=== PATIENT | female | born 1975 | race Caucasian/White ===

== ENCOUNTER 2017-05-05 17:18 | Emergency (ER) | payer OTHER ==
[~2017-05-05] VITALS: Ht 165.1 cm; Wt 96.0 kg
[~2017-05-05 17:18] MED LIST: ALBU8I INH; CITA20 PO; CYCL-36 PO
[2017-05-05 17:20] VITALS: BP 145/93; PULSE 79; RESP 16; TEMP 98.6; O2SAT 98
[2017-05-05] MEDS ORDERED: MULTTAB67 PO (17:33)
[2017-05-05] MEDS ORDERED: CELE20TA PO (17:33)
--- NOTE | 2017-05-05 17:43 | PD ---
HPI Chief Complaint: Abdominal Pain Time Seen by Provider: 17:33 Travel History International Travel<30 days: No Contact w/Intl Traveler<30days: No Traveled to known affect area: No History of Present Illness HPI 41-year-old female here for evaluation of right upper quadrant abdominal pain. The patient reports pain in her right upper quadrant for the last week described as an ache, moderate, constant, worse when laying on her side. She denies fevers or chills. No nausea, vomiting, or diarrhea. No history of abdominal surgeries. No urinary symptoms. PFSH Past Medical History Asthma: Yes Anxiety: Yes Cardiovascular Problems: Yes (MITRAL VALVE REGURGITATION) Diminished Hearing: No Tetanus Vaccination: Unknown ?: Not LMP: 04/28/2017 : 2 Para: 1 : 1 Past Surgical History Tonsillectomy: Yes Other Surgery: Yes (LEEP PROCEDURE) Social History Alcohol Use: Yes (occ) Tobacco Use: Yes (1/2 PPD) Substance Use: Yes (alcohol) Allergies-Medications (Allergen,Severity, Reaction): Coded Allergies: No Known Allergies (Verified , 05/05/17) Reported Meds & Prescriptions Reported Meds & Active Scripts Active Tramadol (Tramadol HCl) 50 Mg Tab 50 Mg PO Q6H PRN Protonix (Pantoprazole Sodium) 40 Mg Tab 40 Mg PO DAILY Reported Multiple Vitamin 1 Tab 1 Tab PO DAILY Celexa (Citalopram Hydrobromide) 20 Mg Tab 20 Mg PO DAILY Review of Systems Except as stated in HPI: all other systems reviewed are Neg Physical Exam Narrative GENERAL: Well-developed, well-nourished, comfortable, no acute distress. SKIN: Focused skin assessment warm/dry. No rash. HEAD: Atraumatic. Normocephalic. EYES: Pupils equal and round. No scleral icterus. No injection or drainage. ENT: Mucous membranes pink and moist. CARDIOVASCULAR: Regular rate and rhythm. No murmur appreciated. RESPIRATORY: No accessory muscle use. Clear to auscultation. Breath sounds equal bilaterally. GASTROINTESTINAL: Abdomen soft, nondistended. Mild right upper quadrant tenderness without peritoneal signs. Rest of abdomen is soft and nontender. Normal bowel sounds. No hernias. MUSCULOSKELETAL: No obvious deformities. No clubbing. No cyanosis. No edema. NEUROLOGICAL: Awake and alert. No obvious cranial nerve deficits. Motor grossly within normal limits. Normal speech. PSYCHIATRIC: Appropriate mood and affect; insight and judgment normal. Data Data Last Documented VS Vital Signs Date Time Temp Pulse Resp B/P Pulse Ox O2 Delivery O2 Flow Rate FiO2 05/05/17 19:20 72 18 119/74 100 Room Air 05/05/17 17:20 98.6 Orders Beta Hcg (Quant/Titer) (05/05/17 17:40) Complete Blood Count With Diff (05/05/17 17:40) Comprehensive Metabolic Panel (05/05/17 17:40) Lipase (05/05/17 17:40) Lactic Acid (05/05/17 17:40) Prothrombin Time / Inr (Pt) (05/05/17 17:40) Act Partial Throm Time (Ptt) (05/05/17 17:40) Urinalysis - C+S If Indicated (05/05/17 17:40) Us Abdomen Gallbladder (05/05/17 ) Iv Access Insert/Monitor (05/05/17 17:40) Ecg Monitoring (05/05/17 17:40) Oximetry (05/05/17 17:40) Pantoprazole Inj (Protonix Inj) (05/05/17 17:45) Sodium Chloride 0.9% Flush (Ns Flush) (05/05/17 17:45) Ketorolac Inj (Toradol Inj) (05/05/17 17:45) Labs Laboratory Tests Test 05/05/17 17:52 White Blood Count 9.4 TH/MM3 Red Blood Count 4.35 MIL/MM3 Hemoglobin 13.3 GM/DL Hematocrit 38.8 % Mean Corpuscular Volume 89.0 FL Mean Corpuscular Hemoglobin 30.6 PG Mean Corpuscular Hemoglobin 34.4 % Concent Red Cell Distribution Width 12.8 % Platelet Count 234 TH/MM3 Mean Platelet Volume 8.3 FL Neutrophils (%) (Auto) 69.6 % Lymphocytes (%) (Auto) 21.5 % Monocytes (%) (Auto) 5.6 % Eosinophils (%) (Auto) 2.3 % Basophils (%) (Auto) 1.0 % Neutrophils # (Auto) 6.6 TH/MM3 Lymphocytes # (Auto) 2.0 TH/MM3 Monocytes # (Auto) 0.5 TH/MM3 Eosinophils # (Auto) 0.2 TH/MM3 Basophils # (Auto) 0.1 TH/MM3 CBC Comment DIFF FINAL Differential Comment Prothrombin Time 10.3 SEC Prothromb Time International 0.9 RATIO Ratio Activated Partial 28.9 SEC Thromboplast Time Urine Collection Type CLEAN CATCH Urine Color YELLOW Urine Turbidity CLEAR Urine pH 5.5 Urine Specific [place] 1.027 Urine Protein NEG mg/dL Urine Glucose (UA) NEG mg/dL Urine Ketones NEG mg/dL Urine Occult Blood NEG Urine Nitrite NEG Urine Bilirubin NEG Urine Leukocyte Esterase NEG Urine RBC 0-3 /hpf Urine WBC 0-2 /hpf Urine Squamous Epithelial 0-5 /hpf Cells Microscopic Urinalysis Comment CULT NOT INDICATED Urine Collection Time 17:52 Sodium Level 142 MEQ/L Potassium Level 3.8 MEQ/L Chloride Level 106 MEQ/L Carbon Dioxide Level 26.5 MEQ/L Anion Gap 10 MEQ/L Blood Urea Nitrogen 20 MG/DL Creatinine 0.86 MG/DL Estimat Glomerular Filtration 72 ML/MIN Rate Random Glucose 91 MG/DL Lactic Acid Level 0.8 mmol/L Calcium Level 8.8 MG/DL Total Bilirubin 0.2 MG/DL Aspartate Amino Transf 18 U/L (AST/SGOT) Alanine Aminotransferase 39 U/L (ALT/SGPT) Alkaline Phosphatase 119 U/L Total Protein 7.4 GM/DL Albumin 3.8 GM/DL Lipase 249 U/L Human Chorionic Gonadotropin, LESS THAN 1 Quant MIU/ML [facility] Medical Decision Making Medical Screen Exam Complete: Yes Emergency Medical Condition: Yes Medical Record Reviewed: Yes Interpretation(s) EKG: Sinus, rate 66, normal axis, normal intervals, no acute ischemic abnormality. Differential Diagnosis Cholelithiasis, cholecystitis, hepatobiliary disease, pancreatitis, peptic ulcer disease Narrative Course Vital signs reviewed. CBC is unremarkable. CMP is unremarkable. Lactic acid is 0.8. Lipase is 249. Beta hCG is negative. UA is not suggestive of UTI. Right upper quadrant ultrasound: Unremarkable exam. The gallbladder is within normal limits with no evidence of cholelithiasis. Patient was made aware of all findings per she is resting comfortably. There are no peritoneal signs on exam. The pain has been going on for over a week. She may have peptic ulcer disease. I do not believe that CT scan is warranted at this time. She is stable for discharge home with outpatient follow-up with her primary care physician this week. I will start her on Protonix. She was informed on when to return to the emergency department. She verbalizes understanding and agreement with plan. Diagnosis Primary Impression: Right upper quadrant abdominal pain Referrals: Primary Care Physician 3 days Additional Instructions: Follow-up with your primary care physician this week. Return to the emergency department for worsening symptoms or any other concerns. Scripts Tramadol 50 Mg Tab50 Mg PO Q6H PRN (PAIN) #10 TAB Ref 0 Prov:Emmanuel Hammonds MD 05/05/17 Pantoprazole (Protonix)40 Mg Tab40 Mg PO DAILY #30 TAB Ref 0 Prov:Emmanuel Hammonds MD 05/05/17 Disposition: 01 DISCHARGE HOME Condition: Stable Emmanuel Hammonds MD May 05, 2017 17:43
[2017-05-05] MEDS ORDERED: PANTOPRAZOLE SODIUM 40 MG VIAL IVP ONE (17:45)
[2017-05-05] MEDS ORDERED: SODIUM CHLORIDE 0.9% FLUSH 10 ML FLUSH IV FLUSH PRN (17:45)
[2017-05-05] MEDS ORDERED: KETOROLAC TROMETHAMINE 30 MG/ML (IVP) VIAL IV PUSH ONE (17:45)
[2017-05-05 17:58] LABS: AUTOMATED NEUTROPHIL # 6.6 TH/MM3 (1.8-7.7); BASOPHIL # 0.1 TH/MM3 (0-0.2); EOSINOPHIL # 0.2 TH/MM3 (0-0.4); EOSINOPHIL % 2.3 % (0.0-4.0); HEMATOCRIT 38.8 % (35.0-46.0); HEMO FLAGS DIFF FINAL; LYMPH % 21.5 % (9.0-44.0); MEAN CORPUSCULAR HEMOGLOBIN 30.6 PG (27.0-34.0); MEAN CORPUSCULAR HGB CONC 34.4 % (32.0-36.0); MONO % 5.6 % (0.0-8.0); NEUT % 69.6 % (16.0-70.0); PLATELET COUNT 234 TH/MM3 (150-450); RED BLOOD COUNT 4.35 MIL/MM3 (4.00-5.30); RED CELL DISTRIBUTION WIDTH 12.8 % (11.6-17.2); WHITE BLOOD COUNT 9.4 TH/MM3 (4.0-11.0)
[2017-05-05 18:00] LABS: BLOOD, URINE NEG (NEG); GLUCOSE,URINE NEG (NEG); KETONE, URINE NEG (NEG); NITRITE,URINE NEG (NEG); PH, URINE 5.5 (5.0-8.5)
[2017-05-05 18:07] LABS: METHOD OF COLLECTION CLEAN CATCH; URINE COLOR YELLOW (YELLW/STRAW)
[2017-05-05 18:09] VITALS: O2SAT 98
[2017-05-05 18:10] LABS: RBC, URINE 0-3 /hpf (0-3); WBC, URINE 0-2 /hpf (0-5)
[2017-05-05 18:11] LABS: COMMENT (UR) CULT NOT INDICATED; CULTURE IF INDICATED CULT NOT INDICATED; SQUAMOUS EPITHELIAL CELL URINE 0-5 /hpf (0-5)
[2017-05-05 18:13] LABS: APTT (PATIENT) 28.9 SEC (24.3-30.1); INTERNATIONAL NORMALIZED RATIO 0.9 RATIO; PROTHROMBIN TIME - PATIENT 10.3 SEC (9.8-11.6)
[2017-05-05 18:54] LABS: CHLORIDE 106 MEQ/L (98-107); POTASSIUM 3.8 MEQ/L (3.5-5.1); SODIUM (NA) 142 MEQ/L (136-145)
[2017-05-05 18:58] LABS: ANION GAP 10 MEQ/L (5-15); BICARBONATE 26.5 MEQ/L (21.0-32.0); BLOOD UREA NITROGEN 20 MG/DL (7-18)
--- NOTE | 2017-05-05 18:59 | RADRPT ---
EXAM DATE/TIME: 05/05/2017 18:17 [facility] COMPARISON: No previous studies available for comparison. INDICATIONS : Right upper quadrant pain. MEDICAL HISTORY : Mitral valve regurgitation. Asthma. Anxiety. Right upper quadrant pain. SURGICAL HISTORY : Tonsillectomy. Leep procedures. ENCOUNTER: Initial ACUITY: 1 week PAIN SCORE: 7/10 LOCATION: Right upper quadrant MEASUREMENTS: LIVER: 15.3 cm length COMMON DUCT: 4 mm RIGHT KIDNEY: 10.1 x 5.4 x 5.3 cm FINDINGS: LIVER: Normal echotexture without focal lesion or ductal dilatation. COMMON DUCT: No intraluminal mass or stone visualized. GALLBLADDER: Contains no stones, demonstrates no wall thickening or pericholecystic fluid. PANCREAS: The visualized portions are within normal limits. RIGHT KIDNEY: No evidence of hydronephrosis, stone, or mass. CONCLUSION: Unremarkable exam. The gallbladder is within normal limits with no evidence of cholel ithiasis. Antolin Lovell MD on May 05, 2017 at 18:57 Board Certified Radiologist. This report was verified electronically.
[2017-05-05 19:00] LABS: ALT (GPT) 39 U/L (10-53); AST (GOT) 18 U/L (15-37)
[2017-05-05 19:01] LABS: GLOMERULAR FILTRATION RATE 72 ML/MIN (>89)
[2017-05-05 19:02] LABS: TOTAL BILIRUBIN ADULT 0.2 MG/DL (0.2-1.0)
[2017-05-05 19:03] LABS: ALKALINE PHOSPHATASE 119 U/L (45-117)
[2017-05-05 19:06] LABS: BETA HCG QUANT LESS THAN 1 MIU/ML (0-5)
[2017-05-05 19:20] VITALS: BP 119/74; PULSE 72; RESP 18; O2SAT 100
[2017-05-05] MEDS ORDERED: TRAM50TA PO (19:25)
[2017-05-05] MEDS ORDERED: PROT40TA PO (19:25)
--- NOTE | 2017-05-06 05:02 | EKG ---
Date Performed: 05/05/2017 Time Performed: 19:32:48 PTAGE: 41 years EKG: Sinus rhythm NORMAL ECG NO SIGNIFICANT CHANGE FROM PRIOR ELECTROCARDIOGRAM. PREVIOUS TRACING : 12/30/2014 14.29 DOCTOR: Satish Klein Interpretating Date/Time 05/06/2017 05:00:03
== END 2017-05-05 19:53 | disposition home or self-care (01) ==
LOC: PHED 17:18
DX: R10.11 Right upper quadrant pain (principal); F17.210 Nicotine dependence, cigarettes, uncomplicated; I34.0 Nonrheumatic mitral (valve) insufficiency
CPT/HCPCS: 76705; 80053; 81001; 83605; 83690; 84702; 85025; 85610; 85730; 93005; 96374; 96375; 99285; C9113; J1885

== ENCOUNTER 2017-12-31 12:16 | Emergency (ER) | payer OTHER ==
[~2017-12-31] VITALS: Ht 165.1 cm; Wt 96.9 kg
[~2017-12-31 12:16] MED LIST changes: -ALBU8I INH; +CELE20TA PO; -CITA20 PO; -CYCL-36 PO; +MULTTAB67 PO; +PROT40TA PO; +TRAM50TA PO
[2017-12-31 12:28] VITALS: BP 151/70; PULSE 101; RESP 16; TEMP 102.1; O2SAT 96
--- NOTE | 2017-12-31 13:13 | PD ---
HPI . Flulike symptoms Chief Complaint: Fever Time Seen by Provider: 13:04 Travel History International Travel<30 days: No Contact w/Intl Traveler<30days: No Traveled to known affect area: No History of Present Illness HPI This patient presents with a six-day history of flulike symptoms. She complains with headache, nasal congestion and rhinorrhea, cough and myalgias and subjective fever/chills. She works here. She did have a flu shot. She has been treating herself at home with increased fluids, rest and [place] plus. She is failing to improve with this treatment and subsequently presents to us today. There was not anything that became worse today it caused her to come here. Symptoms have just been constant for the last 6 days. PFSH Past Medical History Asthma: Yes Anxiety: Yes Cardiovascular Problems: Yes (MITRAL VALVE REGURGITATION) Diminished Hearing: No ?: Not : 2 Para: 1 : 1 Past Surgical History Tonsillectomy: Yes Other Surgery: Yes (LEEP PROCEDURE) Social History Alcohol Use: Yes (occ) Tobacco Use: Yes (/ PPD) Substance Use: Yes (alcohol) Allergies-Medications (Allergen,Severity, Reaction): Coded Allergies: No Known Allergies (Verified Adverse Reaction, Unknown, 12/31/17) Reported Meds & Prescriptions Reported Meds & Active Scripts Active Protonix (Pantoprazole Sodium) 40 Mg Tab 40 Mg PO DAILY Reported Multiple Vitamin 1 Tab 1 Tab PO DAILY Celexa (Citalopram Hydrobromide) 20 Mg Tab 20 Mg PO DAILY Review of Systems Except as stated in HPI: all other systems reviewed are Neg General / Constitutional: Positive: Fever, Chills HENT: Positive: Headaches, Rhinorrhea, Congestion Respiratory: Positive: Cough Physical Exam Narrative GENERAL: Awake and alert. She has obvious nasal congestion. SKIN: warm/dry. Normal color and turgor. HEAD: Normocephalic. Atraumatic. EYES: Pupils equal and round. No scleral icterus. No injection or drainage. ENT: Nasal congestion. Mucous membranes pink and moist. NECK: Trachea midline. Full range of motion without pain.. Supple. No cervical lymphadenopathy. CARDIOVASCULAR: Regular rate and rhythm. Heart sounds normal. RESPIRATORY: No accessory muscle use. Diffuse coarse expiratory wheezing. Breath sounds equal bilaterally. GASTROINTESTINAL: Abdomen soft. Nontender. Bowel sounds present. Nondistended. MUSCULOSKELETAL: No obvious deformities. NEUROLOGICAL: Awake and alert. No obvious cranial nerve deficits. Motor grossly within normal limits. Normal speech. PSYCHIATRIC: Appropriate mood and affect; insight and judgment normal. Data Data Last Documented VS Vital Signs Date Time Temp Pulse Resp B/P (MAP) Pulse Ox O2 Delivery O2 Flow Rate FiO2 12/31/17 13:45 93 18 129/81 (97) 98 Aerosol Mask 12/31/17 12:28 102.1 Orders Orders Complete Blood Count With Diff (12/31/17 13:07) Basic Metabolic Panel (Bmp) (12/31/17 13:07) Influenzae A/B Antigen (12/31/17 13:07) Iv Access Insert/Monitor (12/31/17 13:07) Chest, Pa & Lat (12/31/17 13:07) Sodium Chloride 0.9% Flush (Ns Flush) (12/31/17 13:15) Methylprednisolone So Succ Inj (Solumedr (12/31/17 13:15) Albuterol-Ipratropium Neb (Duoneb Neb) (12/31/17 13:15) Sodium Chlor 0.9% 1000 Ml Inj (Ns 1000 M (12/31/17 13:15) Ibuprofen (Motrin) (12/31/17 13:15) Lactic Acid (12/31/17 13:13) Labs Laboratory Tests Test 12/31/17 13:31 12/31/17 13:35 White Blood Count 7.2 TH/MM3 Red Blood Count 4.45 MIL/MM3 Hemoglobin 13.3 GM/DL Hematocrit 39.9 % Mean Corpuscular Volume 89.7 FL Mean Corpuscular Hemoglobin 29.8 PG Mean Corpuscular Hemoglobin Concent 33.2 % Red Cell Distribution Width 12.6 % Platelet Count 175 TH/MM3 Mean Platelet Volume 8.2 FL Neutrophils (%) (Auto) 76.2 % Lymphocytes (%) (Auto) 12.6 % Monocytes (%) (Auto) 9.8 % Eosinophils (%) (Auto) 0.6 % Basophils (%) (Auto) 0.8 % Neutrophils # (Auto) 5.5 TH/MM3 Lymphocytes # (Auto) 0.9 TH/MM3 Monocytes # (Auto) 0.7 TH/MM3 Eosinophils # (Auto) 0.0 TH/MM3 Basophils # (Auto) 0.1 TH/MM3 CBC Comment DIFF FINAL Differential Comment Blood Urea Nitrogen 7 MG/DL Creatinine 0.53 MG/DL Random Glucose 91 MG/DL Calcium Level 8.3 MG/DL Sodium Level 138 MEQ/L Potassium Level 3.8 MEQ/L Chloride Level 107 MEQ/L Carbon Dioxide Level 23.6 MEQ/L Anion Gap 7 MEQ/L Estimat Glomerular Filtration Rate 126 ML/MIN Lactic Acid Level 1.1 mmol/L MDM Medical Decision Making Medical Screen Exam Complete: Yes Emergency Medical Condition: Yes Differential Diagnosis Differential diagnosis of fever includes but is not limited to viral illness, strep throat, otitis media, pneumonia, sepsis, UTI Narrative Course This patient presents with flulike symptoms for the past 6 days. She is wheezing. I will treat her with Solu-Medrol and DuoNeb was. Workup is in process to look for flu, pneumonia, sepsis. CBC & BMP Diagram 12/31/17 13:31 Calcium Level 8.3 L LA 1.1 Last Impressions Chest X-Ray 12/31/17 1307 Signed Impressions: Service Date/Time: Sunday, December 31, 2017 13:19 - CONCLUSION: No acute cardiac or process. Natanael George MD The chest x-ray was independently viewed by me. Flu screen is positive. She is having wheezing and will be discharged with a prescription for an albuterol inhaler. Otherwise, continue symptomatic care. Sepsis Criteria SIRS Criteria (2 or more): Temp > 100.9 or < 96.8, Heart rate over 90 Diagnosis Primary Impression: Influenza Additional Impression: Bronchospasm Patient Instructions: Bronchospasm (DC), General Instructions, Influenza (DC) Med/Other Pt SpecificInfo: Prescription(s) given Scripts Albuterol 18 GM Inh (Ventolin Hfa 18 GM Inh) 90 Mcg/Act Aer 2 PUFF INH Q4-6H Y for SHORTNESS OF BREATH, #1 INHALER 0 Refills Prov: Danya Owusu MD 12/31/17 Disposition: 01 DISCHARGE HOME Condition: Stable Danya Owusu MD Dec 31, 2017 13:13
[2017-12-31] MEDS ORDERED: IBUPROFEN 800 MG TAB PO ONE (13:15)
[2017-12-31] MEDS ORDERED: SODIUM CHLORIDE 0.9% FLUSH 10 ML FLUSH IVF PRN (13:15)
[2017-12-31] MEDS ORDERED: SODIUM CHLOR 0.9% 1000 ML INJ 1,000 ML IV ONE (13:15)
[2017-12-31] MEDS ORDERED: methylPREDNISolone SOD SUCC 125 MG/2 ML VIAL IV PUSH ONE (13:15)
--- NOTE | 2017-12-31 13:32 | RADRPT ---
EXAM DATE/TIME: 12/31/2017 13:19 [facility] COMPARISON: No previous studies available for comparison. INDICATIONS : Cough and fever. MEDICAL HISTORY : None. SURGICAL HISTORY : None. ENCOUNTER: Initial ACUITY: 1 week PAIN SCORE: 3/10 LOCATION: Bilateral chest FINDINGS: The heart size is normal. The lungs are free of focal consolidation. There is increased density seen in the left upper chest likely related to the first left rib. There is a similar but much less promin ent area of slight sclerosis of the undersurface of the right rib at the same level. This was present on a prior chest x-ray and should be considered benign and related to the first rib. CONCLUSION: No acute cardiac or process. Natanael George MD on December 31, 2017 at 13:26 Board Certified Radiologist. This report was verified electronically.
[2017-12-31] MEDS: RESP: ALBUTEROL 2.5 MG/IPRATROPIUM 0.5 MG NEB (SCH) INH ×2 (13:35→13:42)
[2017-12-31 13:43] LABS: AUTOMATED NEUTROPHIL # 5.5 TH/MM3 (1.8-7.7); BASOPHIL # 0.1 TH/MM3 (0-0.2); BASOPHIL % 0.8 % (0.0-2.0); EOSINOPHIL % 0.6 % (0.0-4.0); HEMATOCRIT 39.9 % (35.0-46.0); HEMOGLOBIN 13.3 GM/DL (11.6-15.3); LYMPH % 12.6 % (9.0-44.0); LYMPHOCYTE # 0.9 TH/MM3 (1.0-4.8); MEAN CELL VOLUME 89.7 FL (80.0-100.0); MEAN CORPUSCULAR HEMOGLOBIN 29.8 PG (27.0-34.0); MEAN CORPUSCULAR HGB CONC 33.2 % (32.0-36.0); MEAN PLATELET VOLUME 8.2 FL (7.0-11.0); MONO % 9.8 % (0.0-8.0); MONOCYTE # 0.7 TH/MM3 (0-0.9); NEUT % 76.2 % (16.0-70.0); PLATELET COUNT 175 TH/MM3 (150-450); RED BLOOD COUNT 4.45 MIL/MM3 (4.00-5.30); RED CELL DISTRIBUTION WIDTH 12.6 % (11.6-17.2); WHITE BLOOD COUNT 7.2 TH/MM3 (4.0-11.0)
[2017-12-31 13:45] VITALS: BP 129/81; PULSE 93; RESP 18; O2SAT 98
[2017-12-31 13:57] LABS: CALCIUM 8.3 MG/DL (8.5-10.1)
[2017-12-31 13:58] LABS: BICARBONATE 23.6 MEQ/L (21.0-32.0)
[2017-12-31 14:01] LABS: CREATININE 0.53 MG/DL (0.50-1.00)
[2017-12-31] MEDS ORDERED: VENTAER INH (14:12)
[2017-12-31 14:40] VITALS: TEMP 100.7
== END 2017-12-31 14:49 | disposition home or self-care (01) ==
LOC: PHEFT 12:16
DX: J09.X2 Influenza due to identified novel influenza A virus with other respiratory manifestations (principal); J45.909 Unspecified asthma, uncomplicated; F41.9 Anxiety disorder, unspecified; F17.210 Nicotine dependence, cigarettes, uncomplicated; Z79.899 Other long term (current) drug therapy
CPT/HCPCS: 71046; 80048; 83605; 85025; 87804; 94640; 94664; 96365; 96375; 99284; J2930; J7030